=== PATIENT | male | born 1940 | race Caucasian/White ===

== ENCOUNTER 2016-12-22 21:41 | Emergency (ER) | payer OTHER, MEDICARE ==
--- NOTE | 2016-12-23 00:13 | ER Document Report ---
ED General - General Chief Complaint: Foot Pain Stated Complaint: FOOT PAIN Notes: Patient is a 76-year-old male who presents with concerns of pain on the top of his left foot. States that he accidentally dropped a 40 pound metal trailer and on the top of the foot so several hours prior to onset of pain. States he initially did not have any pain but after taking his boots off he began to have progressively worsening pain. Described as a severe, constant, throbbing pain. States he could not walk on the foot the pain was so bad. Nothing improves the pain and he did try Tylenol and ice at home. At the time my evaluation, patient states that the pain is now mostly resolved and states "I feel stupid for coming here". He has been able to walk on it at this time. He denies any history of similar injury in the past. He has not seen his primary care doctor regarding today's concerns. TRAVEL OUTSIDE OF THE [place] IN LAST 30 DAYS: No - Related Data Allergies/Adverse Reactions: No Known Allergies Allergy (Verified 12/22/16 22:29) Past Medical History - General Information source: Patient - Social History Smoking Status: Former Smoker Chew tobacco use (# tins/day): No Frequency of alcohol use: None Drug Abuse: None Lives with: Spouse/Significant other Family History: Reviewed & Not Pertinent - Past Medical History Cardiac Medical History: Reports: Hx Hypertension Neurological Medical History: Denies: Hx Cerebrovascular Accident, Hx Seizures Renal/ Medical History: Reports: Hx End Stage Renal Disease - Stage III kidney disease. Denies: Hx Peritoneal Dialysis GI Medical History: Denies: Hx Hepatitis, Hx Hiatal Hernia, Hx Ulcer Musculoskeltal Medical History: Reports Hx Arthritis, Reports Hx Musculoskeletal Deformity, Reports Hx Musculoskeletal Trauma Traumatic Medical History: Reports: Hx Fractures - Artificial new used to broken ribs to broken toes broken jaw applied Infectious Medical History: Denies: Hx Hepatitis Past Surgical History: Reports: Hx Orthopedic Surgery - Two atrificial legs. Denies: Hx Open Heart Surgery, Hx Pacemaker - Immunizations Hx Diphtheria, Pertussis, Tetanus Vaccination: Yes Hx Pneumococcal Vaccination: 10/22/12 Review of Systems - Review of Systems Notes: Constitutional: Negative for fever. HENT: Negative for sore throat. Eyes: Negative for visual changes. Cardiovascular: Negative for chest pain. Respiratory: Negative for shortness of breath. Gastrointestinal: Negative for abdominal pain, vomiting or diarrhea. Genitourinary: Negative for dysuria. Musculoskeletal: Positive for left foot pain Skin: Negative for rash. Neurological: Negative for headaches, weakness or numbness. 10 point ROS negative except as marked above and in HPI. Physical Exam - Vital signs Vitals: Temp Pulse Resp BP Pulse Ox 98.2 F 66 16 143/51 H 96 12/22/16 22:33 12/22/16 22:33 12/22/16 22:33 12/22/16 22:33 12/22/16 22:33 Interpretation: Hypertensive Notes: PHYSICAL EXAMINATION: GENERAL: Well-appearing, well-nourished and in no acute distress. HEAD: Atraumatic, normocephalic. EYES: sclera anicteric, conjunctiva are normal. ENT: Moist mucous membranes. NECK: Normal range of motion LUNGS: Normal work of breathing HEART: 2+ radial pulses bilaterally EXTREMITIES: no pitting or edema. No cyanosis. NEUROLOGICAL: No focal neurological deficits. Moves all extremities spontaneously and on command. PSYCH: Normal mood, normal affect. SKIN: Warm, Dry, normal turgor, there is a small ecchymosis over the dorsal surface of the central left foot without any palpable deformity. Course - Re-evaluation Re-evalutation: 12/23/16 00:12 No evidence of a septic joint, gout flare, dislocation, or fracture on exam and imaging. Vision provided clinical history of direct trauma to the foot and there is associated bruising and mild swelling on exam. Vitals wnl. At this time, I do not see an indication for labs or further imaging. At this time will discharge with return precautions and follow-up recommendations. Verbal discharge instructions given a the bedside and opportunity for questions given. Medication warnings reviewed. Patient is in agreement with this plan and has verbalized understanding of return precautions and the need for primary care follow-up in the next 24-72 hours. - Vital Signs Vital signs: Temp Pulse Resp BP Pulse Ox 97.5 F 60 16 124/66 98 12/23/16 00:27 12/23/16 00:27 12/23/16 00:27 12/23/16 00:27 12/23/16 00:27 - Diagnostic Test Radiology reviewed: Image reviewed, Reports reviewed Radiology results interpreted by me: 12/23/16 00:12 Left foot x-ray: No acute fracture-dislocation Discharge - Discharge Clinical Impression: Left foot pain Condition: Good Disposition: HOME, SELF-CARE Additional Instructions: Your x-ray does not show any acute fracture today. You likely have a soft tissue injury from the heavy object falling on foot. Take Tylenol 1000 mg every 6 hours as needed for pain. Continue to apply ice to the area is much your able. Please follow-up with your primary care physician if you do not have improving your symptoms in the next 1-2 weeks. Please return immediately if you develop weakness, numbness, spreading redness from the area, or any other symptoms that are concerning to you. Referrals: YASMANY SAN MD [Primary Care Provider] - Follow up as needed
[2016-12-23 00:28] VITALS: BP 124/66
== END 2016-12-23 00:29 | disposition home or self-care (01) ==
LOC: ER 21:41
DX: M79.672 Pain in left foot (principal); Z87.891 Personal history of nicotine dependence
CPT/HCPCS: 99283

== ENCOUNTER → 2017-01-05 | Outpatient (CLI) | payer MEDICARE, OTHER | LOC: SP 12:40 | PROVIDERS: ATTEND Physician Assistant | DX: M79.662 Pain in left lower leg (principal) | CPT/HCPCS: 93971 ==

== ENCOUNTER 2017-02-25 13:25 | Emergency (ER) | payer OTHER, MEDICARE ==
[2017-02-25] MEDS ORDERED: NORMAL SALINE 1000 ML 1,000 ML IV ONE (14:23)
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
[2017-02-25 16:02] LABS: ABSOLUTE EOSINOPHILS # (AUTO) 0.3 10^3/uL (0.0-0.6); ABSOLUTE LYMPHOCYTES (AUTO) 0.9 10^3/uL (0.5-4.7); ABSOLUTE MONOCYTES (AUTO) 0.7 10^3/uL (0.1-1.4); ABSOLUTE NEUT (AUTO) 7.2 10^3/uL (1.7-8.2); BASOPHILS % (AUTO) 0.5 % (0-2); EOSINOPHILS % (AUTO) 2.9 % (0-6); HEMATOCRIT 38.5 % (37.9-51.0); HEMOGLOBIN 13.4 g/dL (13.5-17.0); HGB HCT DIFFERENCE 1.7; LYMPHOCYTES % (AUTO) 10.2 % (13-45); MEAN CORPUSCULAR HEMOGLOBIN 31.8 pg (27.0-33.4); MEAN CORPUSCULAR HGB CONC 34.8 g/dL (32.0-36.0); MEAN CORPUSCULAR VOLUME 91 fl (80-97); MONOCYTES % (AUTO) 7.7 % (3-13); RED BLOOD COUNT 4.21 10^6/uL (4.35-5.55); RED CELL DISTRIBUTION WIDTH 13.9 % (11.5-14.0); SEGMENTED NEUTROPHILS % (AUTO) 78.7 % (42-78); WHITE BLOOD COUNT 9.2 10^3/uL (4.0-10.5)
[2017-02-25 16:19] LABS: ALANINE AMINOTRANSFERASE 41 U/L (21-72); ALBUMIN 4.2 g/dL (3.5-5.0); ALKALINE PHOSPHATASE 85 U/L (38-126); ANION GAP 12 (5-19); ASPARTATE AMINO TRANSFERASE 35 U/L (17-59); BILIRUBIN,DIRECT 0.2 mg/dL (0.0-0.4); BILIRUBIN,TOTAL 0.6 mg/dL (0.2-1.3); BLOOD UREA NITROGEN 30 mg/dL (7-20); CALCIUM 9.8 mg/dL (8.4-10.2); CARBON DIOXIDE 22 mmol/L (22-30); CHLORIDE 107 mmol/L (98-107); CREATININE RESULT 1.85 mg/dL (0.52-1.25); GLUCOSE 99 mg/dL (75-110); POTASSIUM 4.2 mmol/L (3.6-5.0); SODIUM 141.4 mmol/L (137-145); TOTAL PROTEIN 6.7 g/dL (6.3-8.2)
[2017-02-25 19:53] VITALS: BP 151/64
== END 2017-02-25 19:54 | disposition home or self-care (01) ==
LOC: ER 13:25
DX: S16.1XXA Strain of muscle, fascia and tendon at neck level, initial encounter (principal); V43.52XA Car driver injured in collision with other type car in traffic accident, initial encounter; Y92.411 Interstate highway as the place of occurrence of the external cause; M54.2 Cervicalgia; M54.9 Dorsalgia, unspecified; M25.519 Pain in unspecified shoulder; I12.9 Hypertensive chronic kidney disease with stage 1 through stage 4 chronic kidney disease, or unspecified chronic kidney disease; N18.3 Chronic kidney disease, stage 3 (moderate); I25.10 Atherosclerotic heart disease of native coronary artery without angina pectoris; Z79.02 Long term (current) use of antithrombotics/antiplatelets; Z87.891 Personal history of nicotine dependence
CPT/HCPCS: 99284; 36415; 85025; 85610; 80053; 73030; 70450; 71260; 72125; 74177; J7030

== ENCOUNTER 2017-12-31 04:34 | Observation (INO) | payer OTHER, MEDICARE ==
[2017-12-31] MEDS ORDERED: ASPIRIN 81 MG TABLET, CHEWABLE PO ONE (04:58)
[2017-12-31] MEDS ORDERED: ONDANSETRON HCL INJ/PF 4 MG/2 ML SDV IV ONE (04:59)
[2017-12-31] MEDS ORDERED: FENTANYL CITRATE INJ/PF 100 MCG/2 ML AMPUL IV ONE (04:59)
--- NOTE | 2017-12-31 05:00 | ER Document Report ---
ED Cardiac - General Chief Complaint: Chest Pain Stated Complaint: FLANK PAIN Time Seen by Provider: 12/31/17 04:52 Notes: Patient is a 77-year-old male who comes emergency department for chief complaint of left-sided chest pain, he states it is sharp, shoots along the left side of his ribs and goes towards his back. Pain woke him up at about 3:00 , has been constant and severe since. He denies nausea or vomiting, fever chills, difficulty breathing. He denies injury. He denies history of the same. Former smoker, has had carotid endarterectomy, has hypertension, CKD. He states he is on Plavix, states he took 2 prior to arrival (75 mg daily dose), states he also took a pain pill, states these did not help. He denies ever having a stress test, cardiac cath, or heart attack. Patient denies any alcohol or drug abuse. TRAVEL OUTSIDE OF THE [place] IN LAST 30 DAYS: No - Related Data Allergies/Adverse Reactions: No Known Allergies Allergy (Verified 12/22/16 22:29) Past Medical History - General Information source: Patient - Social History Smoking Status: Never Smoker Frequency of alcohol use: None Drug Abuse: None Lives with: Family Family History: None - Past Medical History Cardiac Medical History: Reports: Hx Hypertension Neurological Medical History: Denies: Hx Cerebrovascular Accident, Hx Seizures Renal/ Medical History: Reports: Hx End Stage Renal Disease - Stage III kidney disease. Denies: Hx Peritoneal Dialysis GI Medical History: Denies: Hx Hepatitis, Hx Hiatal Hernia, Hx Ulcer Musculoskeltal Medical History: Reports Hx Arthritis, Reports Hx Musculoskeletal Deformity, Reports Hx Musculoskeletal Trauma Traumatic Medical History: Reports: Hx Fractures Infectious Medical History: Denies: Hx Hepatitis Past Surgical History: Reports: Hx Orthopedic Surgery - knee replacements. Denies: Hx Open Heart Surgery, Hx Pacemaker - Immunizations Hx Diphtheria, Pertussis, Tetanus Vaccination: Yes Hx Pneumococcal Vaccination: 10/22/12 Review of Systems - Review of Systems Constitutional: No symptoms reported EENT: No symptoms reported Cardiovascular: See HPI Respiratory: No symptoms reported Gastrointestinal: No symptoms reported Genitourinary: No symptoms reported Male Genitourinary: No symptoms reported Musculoskeletal: No symptoms reported Skin: No symptoms reported Hematologic/Lymphatic: No symptoms reported Neurological/Psychological: No symptoms reported Physical Exam - Vital signs Vitals: Resp BP Pulse Ox 20 140/68 H 99 03/12/18 04:55 12/31/17 04:55 12/31/17 04:55 - General General appearance: Anxious In distress: Moderate - Patient appears to be in pain, grimaces - HEENT Head: Normocephalic, Atraumatic Eyes: Normal Conjunctiva: Normal Extraocular movements intact: Yes Eyelashes: Normal Pupils: PERRL Mouth/Lips: Normal Mucous membranes: Normal Pharynx: Normal Neck: Normal - Respiratory Respiratory status: No respiratory distress Chest status: Nontender. No: Tender Breath sounds: Normal. No: Decreased air movement, Nonproductive cough, Wheezing - Cardiovascular Rhythm: Regular. No: Tachycardia Heart sounds: Normal auscultation, S1 appreciated, S2 appreciated - Abdominal Inspection: Normal Tenderness: Nontender. No: Tender - Back Back: Normal, Nontender. No: Tender - Extremities General upper extremity: Normal inspection, Nontender, Normal strength, Normal temperature General lower extremity: Normal inspection, Nontender, Normal strength, Normal temperature. No: Edema - Neurological Neuro grossly intact: Yes Cognition: Normal Orientation: AAOx4 [place] Coma Scale Eye Opening: Spontaneous Ej Coma Scale Verbal: Oriented [place] Coma Scale Motor: Obeys Commands Ej Coma Scale Total: 15 Speech: Normal Motor strength normal: LUE, RUE, LLE, RLE Sensory: Normal - Psychological Associated symptoms: Anxious - Skin Skin Moisture: Dry Skin Color: Normal Course - Re-evaluation Re-evalutation: Patient appears to be very uncomfortable, grimacing, shifting. No pain on palpation of the chest. Constant pain. EKG shows sinus rhythm at a rate of 54, right bundle branch block, inverted T waves and slight ST segment elevation in lead III but not in consecutive leads. No T-wave inversions or ST segment changes in consecutive leads. No comparison EKG. 12/31/17 Dr. Ca did evaluate patient at bedside because of the patient's discomfort level. Chest x-ray unremarkable. Patient with no chest wall tenderness. CBC, chemistry unremarkable except for chronic kidney disease. CTA was performed to rule out dissection because of patient's discomfort. This does not show dissection, pulmonary emboli, pneumonia, or any concerning acute process. Questionable area suggesting pancreatitis versus nonspecific enteritis. However on examination patient has no abdominal pain, either initially or now, lipase checked and is negative. After fentanyl patient's pain resolved. Initial troponin is negative. Patient' s heart score is 4. Because of uncertain cause of chest pain, will discuss for admission. Discussed this with patient, patient states agreement with this plan. 12/31/17 07:[address] Leigh, he requests I speak to cardiology on-call. I spoke with Dr. Bradshaw and with Dr. Powell, reviewed the case with Dr. Powell, he does recommend telemetry observation at this time. Spoke with Dr. Leigh again, he refers to Marcelle NESS. Spoke with Marcelle NESS, patient will be admitted to telemetry observation. Patient states agreement with this plan, he states he still feels excellent after medications. - Vital Signs Vital signs: Temp Pulse Resp BP Pulse Ox 97.8 F 54 L 16 139/87 H 97 12/31/17 05:05 12/31/17 05:05 12/31/17 07:01 12/31/17 07:01 12/31/17 07:01 - Laboratory Result Diagrams: 12/31/17 04:54 12/31/17 04:54 Laboratory results interpreted by me: 12/31/17 04:54 BUN 28 H Creatinine 1.87 H Est GFR ( Amer) 43 L Est GFR (Non-Af Amer) 35 L Glucose 117 H Discharge - Discharge Clinical Impression: Chest pain Qualifiers: Chest pain type: unspecified Qualified Code(s): R07.9 - Chest pain, unspecified Condition: Stable Disposition: ADMITTED OBSERVATION Admitting Provider: Hospitalist Unit Admitted: Telemetry Referrals: YASMANY SAN MD [Primary Care Provider] - Follow up as needed
[2017-12-31] MEDS ORDERED: CLOPIDOGREL BISULFATE 75 MG TABLET PO ONE (05:05)
[2017-12-31 05:07] LABS: ABSOLUTE EOSINOPHILS # (AUTO) 0.3 10^3/uL (0.0-0.6); ABSOLUTE LYMPHOCYTES (AUTO) 1.4 10^3/uL (0.5-4.7); ABSOLUTE MONOCYTES (AUTO) 0.6 10^3/uL (0.1-1.4); ABSOLUTE NEUT (AUTO) 4.3 10^3/uL (1.7-8.2); BASOPHILS % (AUTO) 0.6 % (0-2); EOSINOPHILS % (AUTO) 4.9 % (0-6); HEMATOCRIT 41.4 % (37.9-51.0); HEMOGLOBIN 14.3 g/dL (13.5-17.0); LYMPHOCYTES % (AUTO) 21.2 % (13-45); MEAN CORPUSCULAR HEMOGLOBIN 31.8 pg (27.0-33.4); MEAN CORPUSCULAR HGB CONC 34.6 g/dL (32.0-36.0); MEAN CORPUSCULAR VOLUME 92 fl (80-97); MONOCYTES % (AUTO) 9.4 % (3-13); PLATELET COUNT 196 10^3/uL (150-450); RED CELL DISTRIBUTION WIDTH 13.9 % (11.5-14.0); SEGMENTED NEUTROPHILS % (AUTO) 63.9 % (42-78); TOTAL CELLS COUNTED % (AUTO) 100 %; WHITE BLOOD COUNT 6.7 10^3/uL (4.0-10.5)
[2017-12-31 05:24] LABS: ALANINE AMINOTRANSFERASE 33 U/L (21-72); ALBUMIN 4.6 g/dL (3.5-5.0); ALKALINE PHOSPHATASE 76 U/L (38-126); ANION GAP 14 (5-19); ASPARTATE AMINO TRANSFERASE 31 U/L (17-59); BILIRUBIN,DIRECT 0.1 mg/dL (0.0-0.4); BILIRUBIN,TOTAL 0.5 mg/dL (0.2-1.3); BLOOD UREA NITROGEN 28 mg/dL (7-20); CALCIUM 9.8 mg/dL (8.4-10.2); CARBON DIOXIDE 25 mmol/L (22-30); CHLORIDE 106 mmol/L (98-107); CREATINE KINASE 138 U/L (55-170); GLUCOSE 117 mg/dL (75-110); POTASSIUM 4.4 mmol/L (3.6-5.0); SODIUM 144.6 mmol/L (137-145); TOTAL PROTEIN 6.9 g/dL (6.3-8.2)
--- NOTE | 2017-12-31 05:30 | RADIOLOGY REPORT (SQ) ---
EXAM DESCRIPTION: CHEST SINGLE VIEW CLINICAL HISTORY: chest pain COMPARISON: None. FINDINGS: Single frontal view of the chest. After scar calcification aortic arch. Heart is not enlarged. Leads overlie the chest. Chronic appearing interstitial opacities. No pneumothorax, pleural effusion, or lobar consolidation. No acute osseous abnormality. Upper abdominal soft tissues are unremarkable. IMPRESSION: 1. No acute pneumonic process identified.
[2017-12-31 05:36] LABS: CREATINE KINASE MB 1.92 ng/mL (<4.55)
[2017-12-31 05:51] LABS: TROPONIN I < 0.012 ng/mL
--- NOTE | 2017-12-31 06:12 | RADIOLOGY REPORT (SQ) ---
EXAM DESCRIPTION: CTA of the chest, abdomen, and pelvis obtained with contrast. CLINICAL HISTORY: chest pain radiating to back COMPARISON: 02/25/2017 TECHNIQUE: CTA of the chest, abdomen, and pelvis obtained following the uncomplicated intravenous administration of 100 mL Isovue-370 DLP: 2471.61 mGycm FINDINGS: CTA: The ascending thoracic aorta has normal caliber. There is mild atherosclerotic plaque throughout the visualized course of the thoracic and abdominal aorta. The aortic arch, descending thoracic aorta, and abdominal aorta have normal caliber without evidence of aneurysm, dissection, or penetrating aortic ulcer. The origin of the celiac, superior mesenteric, and inferior mesenteric arteries are widely patent. No evidence of filling defect or stenosis of these vessels. Mild atherosclerotic plaque at the origin of the left renal artery is not flow-limiting. Right renal artery is patent. There is in-line flow from the abdominal aorta into the common iliac, external iliac, common femoral, proximal superficial femoral arteries. The proximal profunda femoral artery and internal iliac arteries are patent. No evidence of visceral artery pseudoaneurysm. CHEST: Visualized thyroid gland is unremarkable. No cardiomegaly, pericardial effusion, or coronary artery atherosclerosis. Visualized esophagus is unremarkable. No mediastinal lymphadenopathy. No filling defects identified in the pulmonary arteries. Lung windows demonstrate mild bilateral dependent atelectasis. Paraseptal emphysematous changes. No lobar consolidation, pneumothorax or pleural effusion. Abdomen: The liver has normal size and density. No intrahepatic mass or biliary dilatation. No calcified gallstones. The spleen and adrenal glands are unremarkable. No definite abnormalities of the pancreas however there is mild haziness of the central mesentery. Kidneys excrete contrast without solid mass or hydronephrosis. Bilateral Bosniak class I renal cysts. No hydronephrosis. IVC is unremarkable. No free intraperitoneal air. The stomach and duodenum have normal course. Pelvis: Enlarged prostate. Urinary bladder is unremarkable. No free pelvic fluid or lymphadenopathy. Scattered diverticula of the colon without pericolic fat stranding. No dilated loops of large or small bowel. No evidence of appendicitis. It is not definitely identified. Bilateral vasectomy clips noted. Degenerative change of the spine. IMPRESSION: 1. No evidence of aortic dissection or aneurysm. 2. Mild haziness of the mesentery. This is a nonspecific finding that could be seen with pancreatitis or nonspecific enteritis. Correlation with serum lipase recommended. Follow-up CT of the abdomen in 6 months recommended to document stability or resolution. 3. Enlarged prostate. 4. Diverticulosis without evidence of diverticulitis. This exam was performed according to our departmental dose-optimization program, which includes automated exposure control, adjustment of the mA and/or kV according to patient size and/or use of iterative reconstruction technique.
--- NOTE | 2017-12-31 07:01 | EKG REPORT ---
SEVERITY:- ABNORMAL ECG - SINUS RHYTHM RIGHT BUNDLE BRANCH BLOCK : Confirmed by: Anthony Bradshaw MD 31-Dec-2017 07:00:49
[2017-12-31] MEDS ORDERED: NITROGLYCERIN 0.4 MG/TAB 25 TAB/BOTTLE SL PRN (08:44)
[2017-12-31] MEDS: ASPIRIN 81 MG TABLET, ENT COATED PO SCH (10:02)
--- NOTE | 2017-12-31 20:49 | PDOC CONSULTATION ---
Consultation Consult Date: 12/31/17 Attending physician:: ELIAZAR FERRO Consult reason:: Chest pain History of Present Illness Admission Date/PCP: 12/31/17 08:36 YASMANY SAN MD Patient complains of: Chest pain History of Present Illness: DERRELL BATRES is a 77 year old male who comes emergency department for chief complaint of left-sided chest pain, he states it is sharp, shoots along the left side of his ribs and goes towards his back. Pain woke him up at about 3:00 , has been constant and severe since. He denies nausea or vomiting, fever chills, difficulty breathing. He denies injury. He denies history of the same. Former smoker, has had carotid endarterectomy, has hypertension, CKD. He states he is on Plavix, states he took 2 prior to arrival (75 mg daily dose), states he also took a pain pill, states these did not help. He denies ever having a stress test, cardiac cath, or heart attack. Patient denies any alcohol or drug abuse. This history was reviewed and confirmed. Patient denied any recurrence of chest pain while in the hospital. So far cardiac enzymes have been negative. EKG is relatively nonacute. CT is negative for aortic dissection and pulmonary embolism. Patient scheduled for a stress test tomorrow. 2D echo will also be ordered. Past Medical History Cardiac Medical History: Reports: Hypertension Neurological Medical History: Denies: Seizures Renal/ Medical History: Reports: End Stage Renal Disease - Stage III kidney disease GI Medical History: Denies: Hepatitis, Hiatal Hernia Musculoskeltal Medical History: Reports: Arthritis Hematology: Denies: Anemia, Sickle Cell Disease Past Surgical History Past Surgical History: Reports: Orthopedic Surgery - knee replacements, Vascular Surgery - carotid surgery Denies: Pacemaker Social History Information Source: Patient Lives with: Family Smoking Status: Former Smoker Drugs: None - Advance Directive Resuscitation Status: Full Code Family History Family History: None Parental Family History Reviewed: Yes Children Family History Reviewed: Yes Sibling(s) Family History Reviewed.: Yes Medication/Allergy Home Medications: Amlodipine Besylate [Norvasc 10 mg Tablet] 10 mg PO DAILY 12/31/17 Cyanocobalamin (Vitamin B-12) [Vitamin B-12 100 mcg Tablet] 100 mcg PO DAILY 10/08 Febuxostat [Uloric 40 mg Tablet] 40 mg PO DAILY 12/31/17 Aspirin [Ecotrin 81 mg EC Tablet] 81 mg PO DAILY #90 tabec 01/01/18 Atorvastatin Calcium [Lipitor 10 mg Tablet] 10 mg PO QHS #30 tablet 01/01/18 Clopidogrel Bisulfate [Plavix 75 mg Tablet] 75 mg PO DAILY #21 tablet 01/01/18 Allergies/Adverse Reactions: No Known Allergies Allergy (Verified 12/22/16 22:29) Review of Systems Review of Systems: Please see history of present illness and past medical history as wall. Constitutional: No fever or chills reported. Head : No recent chronic headaches, recent head injury. Eyes: No recent eye pain, diplopia, redness, discharge, acute visual changes. Ears: No recent chronic ear pain, acute hearing loss, ear discharge. Oral cavity: No recent ulcerations, bleeding, oral cavity discomfort. Neck: No recent acute neck pain reported. Hematologic: No recent easy bruising or bleeding or hematologic malignancy reported. Lymphatic: No recent lymphatic malignancy, chronic lymphadenopathy reported yet Cardiovascular system review: See history of present illness. Respiratory system review: No recent chronic cough, hemoptysis, blood clots in the lungs reported. Mild Shortness of breath on exertion Gastrointestinal system review: Negative for any recent acute or chronic abdominal pain, hematemesis, melena, recent change in bowel habits. Genitourinary system review: No recent acute or chronic hematuria, flank pain, UTI etc. reported. Skin system review: Negative for any recent abnormal bruising, no rash, no pruritus reported. Neurologic: No prior history of strokes, mini strokes, seizure disorder. Psychologic: No history of major psychosis or major depression reported. Musculoskeletal: Minor aches and pains reported. No acute joint swelling reported. Endocrine: No recent polyuria, polydipsia, recent heat or cold intolerance. Physical Exam Vital Signs: Temp Pulse Resp BP Pulse Ox 97.9 F 58 L 20 113/72 99 12/31/17 16:20 12/31/17 16:20 12/31/17 16:20 12/31/17 16:20 12/31/17 16:20 Exam: GENERAL: well-nourished and in no acute distress. Alert and oriented x3 HEAD: Atraumatic, normocephalic. EYES: Pupils equal round and reactive to light, extraocular movements intact, sclera anicteric, conjunctiva are normal. ENT: TMs normal, nares patent, oropharynx clear without exudates. Moist mucous membranes. No oral ulcerations or bleeding gums noted NECK: supple without lymphadenopathy. Trachea is central. No cervical or axillary lymphadenopathy noted. Carotids are 2+, JVD WNL LUNGS: Respiration seems nonlabored, no significant accessory muscle action noted. Breath sounds clear to auscultation bilaterally and equal noted. No wheezes rales or rhonchi noted. No significant dullness noted on percussion. CHEST: Palpation of the chest wall shows no significant chest wall tenderness. No other significant abnormalities noted. 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 ABDOMEN: Soft, no significant tenderness appreciated, normoactive bowel sounds. No guarding, no rebound. No rigidity noted . No masses appreciated. EXTREMITIES: Pedal pulses are 1-2+, no calf tenderness noted. No clubbing or cyanosis.trace to 1+ pedal edema noted NEUROLOGICAL: Focused neurological exam showed no significant neurologic deficit. Normal speech, no focal weakness appreciated. PSYCH: Normal mood, normal affect. Judgment and insight within normal limits. SKIN: No significant ecchymosis, skin is noted to be warm. MUSCULOSKELETAL EXAM: No significant acute joint swelling noted. Results Laboratory Results: 12/31/17 14:49 Troponin I < 0.012 EKG Comments: Sinus rhythm without any acute ST-T wave changes Impressions: Chest X-Ray 12/31/17 04:58 IMPRESSION: 1. No acute pneumonic process identified. Abdomen/Pelvis CTA 12/31/17 05:01 IMPRESSION: 1. No evidence of aortic dissection or aneurysm. 2. Mild haziness of the mesentery. This is a nonspecific finding that could be seen with pancreatitis or nonspecific enteritis. Correlation with serum lipase recommended. Follow-up CT of the abdomen in 6 months recommended to document stability or resolution. 3. Enlarged prostate. 4. Diverticulosis without evidence of diverticulitis. This exam was performed according to our departmental dose-optimization program, which includes automated exposure control, adjustment of the mA and/or kV according to patient size and/or use of iterative reconstruction technique. Chest/Abdomen CTA 12/31/17 05:01 IMPRESSION: 1. No evidence of aortic dissection or aneurysm. 2. Mild haziness of the mesentery. This is a nonspecific finding that could be seen with pancreatitis or nonspecific enteritis. Correlation with serum lipase recommended. Follow-up CT of the abdomen in 6 months recommended to document stability or resolution. 3. Enlarged prostate. 4. Diverticulosis without evidence of diverticulitis. This exam was performed according to our departmental dose-optimization program, which includes automated exposure control, adjustment of the mA and/or kV according to patient size and/or use of iterative reconstruction technique. Assessment & Plan - Diagnosis (1) Chest pain Qualifiers: Chest pain type: unspecified Qualified Code(s): R07.9 - Chest pain, unspecified Is this a current diagnosis for this admission?: Yes (2) Dyslipidemia Is this a current diagnosis for this admission?: Yes (3) CKD (chronic kidney disease) Qualifiers: Chronic kidney disease stage: stage 3 (moderate) Qualified Code(s): N18.3 - Chronic kidney disease, stage 3 (moderate) Is this a current diagnosis for this admission?: Yes (4) Hypertension Qualifiers: Hypertension type: essential hypertension Qualified Code(s): I10 - Essential (primary) hypertension Is this a current diagnosis for this admission?: Yes - Notes Notes: Chest pain: Patient has some typical and atypical features of chest pain. Cardiac enzymes so far has been negative. Electrocardiogram did not show any definitive ST segment changes. Multiple differential diagnoses exist in this patient. In descending order of probability this includes underlying coronary artery disease, gastroesophageal reflux, musculoskeletal pain, referred pain from elsewhere, anxiety panic disorder etc.Patient has significant cardiac risk factors, which indicates that there is a intermediate probability of chest discomfort coming from underlying CAD. Feel that it would need to be evaluated further. Discussed evaluation to assess this. In this regard risk benefits of nuclear stress test and other alternative processes were discussed in detail. The patient prefers to undergo nuclear stress test. The small risk of radiation , myocardial infarction, , cardiac arrhythmias, respiratory distress etc. were discussed. Patient understood the risks and gave informed consent. Nuclear stress test was therefore scheduled. For risk evaluation, patient is also being scheduled for a 2-D echocardiogram. Patient questions were answered. Blood pressure goal in this patient is 140/90 or less. This was discussed with the patient. Currently blood pressure under reasonable control. Better medication for this patient are TORSTEN inhibitor/ARB/beta madhu etc. discussed side effects of uncontrolled hypertension and also severe hypotension. Hyperlipidemia: LDL goal is less than 70. Recommend statin therapy at least intermediate or high dose, of high potency status. Periodic lipid panel and liver panel is indicated. Patient to report any significant muscle discomfort or other side effects. Patient seems to have chronic kidney disease stage 3. Creatinine been stable. Avoid any nephrotoxic agents, IV contrast agent dye etc. consider nephrology evaluation. Presence of chronic kidney disease is a prognostic factor. - Time Time Spent: 30 to 50 Minutes - CODE STATUS was discussed, patient remains full code. Surrogate decision-maker unchanged. Multiple medical problems were addressed. More than 50% of the time spent coordinating care, discussing management plans with involved caregivers. Management plans discussed with involved personnels. Medical decision making was of moderate to high complexity , patient's has multiple comorbidities. Medications reviewed and adjusted accordingly: Yes
[2017-12-31] MEDS ORDERED: HYDRALAZINE HCL INJ/PF 20 MG/1 ML SDV IV PRN (21:47)
[2017-12-31] MEDS ORDERED: ATORVASTATIN CALCIUM 10 MG TABLET PO SCH (22:00)
--- NOTE | 2017-12-31 22:04 | PDOC H&P ---
History of Present Illness Admission Date/PCP: 12/31/17 08:36 LUKE DICKSON MD Patient complains of: Chest pain History of Present Illness: DERRELL BATRES is a 77 year old male who presented to the emergency department for chest pain. He states that he woke up at 0300 with sharp L sided chest pain radiating to his shoulder. He took 1 "pain pill" and 150 mg Plavix to alleviate the pain, but it offered no relief. The pain lasted approximately 3 hours when the patient drove himself to the ED. His EKG shows T wave inversion in the septal/anterior leads, RBBB, and ST elevation in lead III. The patient was given 150mg Plavix (total dose 300 mg Plavix) and 75mg fentanyl IV, and his chest pain resolved. CXR benign. Troponin < 0.012. Cardiology has been consulted. Given the patient's concerning symptoms , his significant PMH, and abnormal EKG, he is being admitted for chest pain observation. PMH includes HTN, CKD, angina, carotid stenosis (L carotid 40% stenosed), R carotid endarterectomy PMD - Dr. Luke Dickson Automation Driver - Dr. Guo (Formerly [facility], [facility]) Renal - Dr. Kaufman ([place]) Past Medical History Cardiac Medical History: Reports: Hypertension Cardiac History Note: CAROTID STENOSIS Pulmonary Medical History: Reports: None Pulmonary History Note: FORMER SMOKER - quit 1971 EENT Medical History: Reports: None Neurological Medical History: Reports: None Endocrine Medical History: Reports: None Renal/ Medical History: Reports: End Stage Renal Disease - Stage III kidney disease Malignancy Medical History: Reports: None GI Medical History: Reports: None Musculoskeltal Medical History: Reports: Arthritis, Gout Psychiatric Medical History: Reports: None Traumatic Medical History: Reports: None Hematology: Reports: None Infectious Medical History: Reports: None Past Surgical History Past Surgical History: Reports: Orthopedic Surgery - knee replacements, Vascular Surgery - carotid surgery Denies: Pacemaker Social History Information Source: Patient Lives with: Family Smoking Status: Former Smoker Frequency of Alcohol Use: None Drugs: None - Advance Directive Resuscitation Status: Full Code Family History Family History: None Parental Family History Reviewed: Yes - Father - [place]; Mother - old age Children Family History Reviewed: No Sibling(s) Family History Reviewed.: No Medication/Allergy Home Medications: Amlodipine Besylate [Norvasc 10 mg Tablet] 10 mg PO DAILY 12/31/17 Cyanocobalamin (Vitamin B-12) [Vitamin B-12 100 mcg Tablet] 100 mcg PO DAILY 10/08 Febuxostat [Uloric 40 mg Tablet] 40 mg PO DAILY 12/31/17 Allergies/Adverse Reactions: No Known Allergies Allergy (Verified 12/22/16 22:29) Review of Systems Constitutional: PRESENT: as per HPI Cardiovascular: PRESENT: chest pain - sharp L sided pain radiating to shoulder Respiratory: ABSENT: as per HPI, cough, dyspnea, hemoptysis, sputum, other Gastrointestinal: ABSENT: nausea Musculoskeletal: ABSENT: back pain Physical Exam Vital Signs: Temp Pulse Resp BP Pulse Ox 98.3 F 57 L 15 131/63 H 99 12/31/17 20:00 12/31/17 20:00 12/31/17 20:00 12/31/17 20:00 12/31/17 20:00 General appearance: PRESENT: no acute distress Head exam: PRESENT: atraumatic Eye exam: PRESENT: conjunctiva pink Mouth exam: PRESENT: moist Neck exam: PRESENT: full ROM. ABSENT: carotid bruit Respiratory exam: PRESENT: clear to auscultation magdalena, symmetrical, unlabored Cardiovascular exam: PRESENT: +S1, +S2 Pulses: PRESENT: normal radial pulses, normal dorsalis pedis pul Vascular exam: PRESENT: normal capillary refill GI/Abdominal exam: PRESENT: normal bowel sounds Rectal exam: PRESENT: deferred Extremities exam: PRESENT: full ROM. ABSENT: pedal edema Musculoskeletal exam: PRESENT: ambulatory, full ROM Neurological exam: PRESENT: alert, awake, oriented to person, oriented to place , oriented to time, oriented to situation Results Laboratory Results: 12/31/17 14:49 Troponin I < 0.012 Impressions: Chest X-Ray 12/31/17 04:58 IMPRESSION: 1. No acute pneumonic process identified. Abdomen/Pelvis CTA 12/31/17 05:01 IMPRESSION: 1. No evidence of aortic dissection or aneurysm. 2. Mild haziness of the mesentery. This is a nonspecific finding that could be seen with pancreatitis or nonspecific enteritis. Correlation with serum lipase recommended. Follow-up CT of the abdomen in 6 months recommended to document stability or resolution. 3. Enlarged prostate. 4. Diverticulosis without evidence of diverticulitis. This exam was performed according to our departmental dose-optimization program, which includes automated exposure control, adjustment of the mA and/or kV according to patient size and/or use of iterative reconstruction technique. Chest/Abdomen CTA 12/31/17 05:01 IMPRESSION: 1. No evidence of aortic dissection or aneurysm. 2. Mild haziness of the mesentery. This is a nonspecific finding that could be seen with pancreatitis or nonspecific enteritis. Correlation with serum lipase recommended. Follow-up CT of the abdomen in 6 months recommended to document stability or resolution. 3. Enlarged prostate. 4. Diverticulosis without evidence of diverticulitis. This exam was performed according to our departmental dose-optimization program, which includes automated exposure control, adjustment of the mA and/or kV according to patient size and/or use of iterative reconstruction technique. Status: Imported from PACS Assessment & Plan - Diagnosis (1) Chest pain Qualifiers: Chest pain type: unspecified Qualified Code(s): R07.9 - Chest pain, unspecified Is this a current diagnosis for this admission?: Yes Plan: Presents with L sided sharp chest pain radiating to the L arm. Treated with 300mg Plavix and 75mcg fentanyl. Patient is now chest pain free. Of note, the patient stated that he stopped taking his plavix approximately 3 days ago by the direction of his can operator, Dr. Guo (Formerly [facility], [facility]) Admit for chest pain observation. Cardiology has been consulted. EKG shows ST elevation in lead III, RBBB, T wave inversion in septal/anterior leads Troponin < 0.012, continue to trend SL Nitro for chest pain Plan for echocardiogram and stress test (2) Hypertension Qualifiers: Hypertension type: essential hypertension Qualified Code(s): I10 - Essential (primary) hypertension Is this a current diagnosis for this admission?: Yes Plan: Patient has a PMH HTN. Will restart home anti-hypertensives - amlodipine (3) CKD (chronic kidney disease) Qualifiers: Chronic kidney disease stage: stage 3 (moderate) Qualified Code(s): N18.3 - Chronic kidney disease, stage 3 (moderate) Is this a current diagnosis for this admission?: Yes Plan: Patient endorses a history of CKD stage III. Avoid nephrotoxic agents. Creatinine upon admission is 1.87 - Time Critical Time spent with patient: 15-24 minutes Medications reviewed and adjusted accordingly: Yes Anticipated discharge: Home Within: within 48 hours - Inpatient Certification Based on my medical assessment, after consideration of the patient's comorbidities, presenting symptoms, or acuity I expect that the services needed warrant INPATIENT care.: Yes I certify that my determination is in accordance with my understanding of Medicare's requirements for reasonable and necessary INPATIENT services [42 CFR 412.3e].: Yes Medical Necessity: Risk of Complication if Not Cared For in Hospital - Plan Summary Plan Summary: Plan to discharge home
[2018-01-01 03:40] LABS: HEMATOCRIT 39.1 % (37.9-51.0); HEMOGLOBIN 13.5 g/dL (13.5-17.0); MEAN CORPUSCULAR HEMOGLOBIN 31.6 pg (27.0-33.4); MEAN CORPUSCULAR HGB CONC 34.6 g/dL (32.0-36.0); MEAN CORPUSCULAR VOLUME 91 fl (80-97); PLATELET COUNT 172 10^3/uL (150-450); RED BLOOD COUNT 4.28 10^6/uL (4.35-5.55); RED CELL DISTRIBUTION WIDTH 13.8 % (11.5-14.0); WHITE BLOOD COUNT 7.1 10^3/uL (4.0-10.5)
[2018-01-01 03:56] LABS: ANION GAP 9 (5-19); BLOOD UREA NITROGEN 24 mg/dL (7-20); CALCIUM 9.4 mg/dL (8.4-10.2); CARBON DIOXIDE 24 mmol/L (22-30); CHLORIDE 109 mmol/L (98-107); CHOLESTEROL 153.18 mg/dL (0-200); GLUCOSE 103 mg/dL (75-110); PHOSPHORUS 3.5 mg/dL (2.5-4.5); POTASSIUM 4.7 mmol/L (3.6-5.0); SODIUM 141.9 mmol/L (137-145); TRIGLYCERIDES 146 mg/dL (<150)
[2018-01-01 04:07] LABS: DIRECT LDL 97 mg/dL (<100)
[2018-01-01] MEDS ORDERED: FEBUXOSTAT 40 MG TABLET PO SCH (10:00)
[2018-01-01] MEDS ORDERED: CLOPIDOGREL BISULFATE 75 MG TABLET PO SCH (10:00)
[2018-01-01] MEDS ORDERED: AMLODIPINE BESYLATE 10 MG TABLET PO SCH (10:00)
[2018-01-01] MEDS: ASPIRIN 81 MG TABLET, ENT COATED PO SCH (10:02)
--- NOTE | 2018-01-01 12:18 | DRAGON STRESS TEST REPORT ---
INTRAVENOUS LEXISCAN CARDIOLITE STRESS TEST USING SINGLE PHOTON EMMISION COMPUTERIZED TOMOGRAPHIC. DATE OF PROCEDURE: January 01, 2018, INDICATION : Chest pain CARDIAC RISK FACTORS: Hypertension, dyslipidemia, chronic kidney disease, borderline diabetes. RESTING EKG: Sinus rhythm with right bundle branch block pattern STRESS EKG: No significant changes noted with LexiScan bolus REASON FOR TERMINATION: Protocol. PROCEDURE REPORT: Baseline heart rate 55 beats per minute with blood pressure of 144/66. Patient had no significant complaints. Heart rate at 2 minutes post bolus 82 with a blood pressure of 154/59. 3 minutes post bolus heart rate 62 with blood pressure of 145/61. No significant EKG changes were noted. Patient had no significant complaints during the procedure or postprocedure. Patient injected with Aminophyllin 75 mg at 3 minutes or later after Lexiscan bolus. CONCLUSIONS: Normal EKG and hemodynamic response to IV LexiScan. NUCLEAR DATA: At rest the patient was given 11.44 millicuries of technetium 99 sestamibi injected intravenously. As per protocol rest gated SPECT images were obtained. On day of stress test, the patient was given intravenous LexiScan at a dose of 0.4 mg in 5 mL intravenously, followed by flush with normal saline. Subsequently the stress dose of 33.9 millicuries of technetium 99 sestamibi was injected intravenously. As per protocol stress gated images were obtained. NUCLEAR INTERPRETATION: Both raw and processed data were used for interpretation. Visual, qualitative, computer-generated quantitative data was used. There was good myocardial uptake of technetium compound. Motion artifact and soft tissue attenuations were noted. Increased visceral uptake was noted. No definitive areas of transient perfusion defect noted, except for borderline/mild decreased uptake in the distal inferolateral wall of the left ventricle, SDS score of 1, no corresponding wall motion abnormalities noted on gated imaging therefore unlikely to be significant. However clinical correlation is requested. No definitive areas of fixed perfusion defect or scars noted. EKG gated imaging showed LV EF at 57 %, rest and stress gated EF similar visually. T. I D. ratio was 1.03. Lung heart ratio noted to be within normal limits 0.47. No significant extracardiac and abnormal radiotracer activities were noted. RV free wall uptake was noted to be WNL. Lung heart ratio is at the upper limit of normal is therefore patient may have some parenchymal lung disease, which may need to be evaluated further. IMPRESSION: Also refer to comments under nuclear interpretation. Also test results needs to be interpreted in the context of pretest probability. 1. No definitive areas of transient perfusion defect noted. Please refer to details in nuclear interpretation 2. There is no definitive scintigraphic evidence of myocardial infarction/scar. 3. EKG gated imaging shows left ventricular ejection fraction of approx. 57 %. 4. Lung heart ratio noted to be at the upper limit of normal. May consider further evaluation for any underlying lung disease. 5. Clinical correlation requested as occasionally single vessel disease or balanced ischemia could be missed. In approximately 10% of the cases Lexiscan may not cause adequate vasodilatory stress. RECOMMENDATIONS: Aggressive risk factor modification and medical management. Further evaluation may be needed if continued symptoms or other high risk indicators are noted on clinical evaluation. Close cardiology follow-up is also recommended. Clinical correlation with echocardiogram derived ejection fraction. Inability to exercise by itself can lead to increased cardiovascular event risks. Consider cardiology consultation and or follow-up if clinically indicated. I am available for cardiology evaluation and consultation if requested by the stacker straightener, unless patient already has a tape recording machine operator. COOPER
[2018-01-01 16:03] VITALS: BP 132/68
[2018-01-01] MEDS ORDERED: REGADENOSON INJ 0.4 MG/5 ML DISP.SYRIN IV ONE (16:18)
[2018-01-01] MEDS ORDERED: AMINOPHYLLINE INJ/PF 250 MG/10 ML SDV IV ONE (16:18)
--- NOTE | 2018-01-01 16:43 | PDOC DISCHARGE SUMMARY ---
General - Admit/Disc Date/PCP Admission Date/Primary Care Provider: 12/31/17 08:36 LUKE DICKSON MD Discharge Date: 01/01/18 - Discharge Diagnosis (1) Chest pain Is this a current diagnosis for this admission?: Yes (2) CKD (chronic kidney disease) Is this a current diagnosis for this admission?: Yes (3) Hypertension Is this a current diagnosis for this admission?: Yes - Additional Information Resuscitation Status: Full Code Discharge Diet: Regular, Cardiac Discharge Activity: Activity As Tolerated, Balance Activity w/Rest Prescriptions: Aspirin [Ecotrin 81 mg EC Tablet] 81 mg PO DAILY #90 tabec Atorvastatin Calcium [Lipitor 10 mg Tablet] 10 mg PO QHS #30 tablet Clopidogrel Bisulfate [Plavix 75 mg Tablet] 75 mg PO DAILY #21 tablet Home Medications: Amlodipine Besylate [Norvasc 10 mg Tablet] 10 mg PO DAILY 12/31/17 Cyanocobalamin (Vitamin B-12) [Vitamin B-12 100 mcg Tablet] 100 mcg PO DAILY 10/08 Febuxostat [Uloric 40 mg Tablet] 40 mg PO DAILY 12/31/17 Aspirin [Ecotrin 81 mg EC Tablet] 81 mg PO DAILY #90 tabec 01/01/18 Atorvastatin Calcium [Lipitor 10 mg Tablet] 10 mg PO QHS #30 tablet 01/01/18 Clopidogrel Bisulfate [Plavix 75 mg Tablet] 75 mg PO DAILY #21 tablet 01/01/18 History of Present Illness History of Present Illness: Per H&P by Safia Brown [facility]: DERRELL BATRES is a 77 year old male who presented to the emergency department for chest pain. He states that he woke up at 0300 with sharp L sided chest pain radiating to his shoulder. He took 1 " pain pill" and 150 mg Plavix to alleviate the pain, but it offered no relief. The pain lasted approximately 3 hours when the patient drove himself to the ED. His EKG shows T wave inversion in the septal/anterior leads, RBBB, and ST elevation in lead III. The patient was given 150mg Plavix (total dose 300 mg Plavix) and 75mg fentanyl IV, and his chest pain resolved. CXR benign. Troponin < 0.012. Cardiology has been consulted. Given the patient's concerning symptoms , his significant PMH, and abnormal EKG, he is being admitted for chest pain observation. PMH includes HTN, CKD, angina, carotid stenosis (L carotid 40% stenosed), R carotid endarterectomy PMD - Dr. Luke Dickson Paediatric Physiotherapist - Dr. Guo ([facility]) Renal - Dr. Kaufman ([place]) Hospital Course Hospital Course: The patient was admitted under observational status on 12/31/17 for acute chest pain. Evaluation in the emergency department revealed an EKG with a right bundle branch block and inverted T waves with slight ST segment elevation in lead III but not in any consecutive leads. A CTA of the chest and abdomen was obtained to rule out dissection giving the patient's severity of pain. Fortunately, CTA of the chest and abdomen did not reveal evidence of an aortic dissection or aneurysm. Incidentally, nonspecific haziness was noted to the central mesenteric area and pancreatitis cannot be ruled out. Lipase was found to be 234. Cardiology was consulted. Serial troponins remained negative. The following morning the patient underwent a nuclear stress test with a normal EKG and hemodynamic response to IV Lexiscan. Echocardiogram was obtained. At time of dictation, the final report is not yet available. I did speak with the cooking chef, Dr. Powell, who stated that no concerning findings were evident on preliminary review. At this time, Dr. Powell approves the patient being discharged with outpatient follow-up at his established cooking chef. The patient is provided the option of staying until final results are available; he elects to be discharged at this time. At time of discharge, the patient is in stable condition, has been pain-free for greater than 24 hours. He is provided prescriptions for Aspirin, Atorvastatin, and Plavix. He is advised to follow up with his primary care provider within 1-2 weeks and with his primary cooking chef as scheduled on 01/17. Physical Exam Vital Signs: Temp Pulse Resp BP Pulse Ox 97.4 F 67 18 132/68 H 100 01/01/18 16:00 01/01/18 16:00 01/01/18 16:00 01/01/18 16:00 01/01/18 16:00 Intake & Output 12/31/17 01/01/18 01/02/18 06:59 06:59 06:59 Intake Total 250 Balance 250 Weight 73.1 kg General appearance: PRESENT: no acute distress, well-developed, well-nourished Head exam: PRESENT: atraumatic, normocephalic Eye exam: PRESENT: conjunctiva pink, EOMI, PERRLA. ABSENT: scleral icterus Ear exam: PRESENT: normal external ear exam Mouth exam: PRESENT: moist, tongue midline Neck exam: ABSENT: carotid bruit, JVD, lymphadenopathy, thyromegaly Respiratory exam: PRESENT: clear to auscultation magdalena, symmetrical, unlabored. ABSENT: rales, rhonchi, wheezes Cardiovascular exam: PRESENT: RRR, +S1, +S2. ABSENT: diastolic murmur, rubs, systolic murmur Pulses: PRESENT: normal dorsalis pedis pul Vascular exam: PRESENT: normal capillary refill GI/Abdominal exam: PRESENT: normal bowel sounds, soft. ABSENT: distended, guarding, mass, organolmegaly, rebound, tenderness Rectal exam: PRESENT: deferred Extremities exam: PRESENT: full ROM. ABSENT: calf tenderness, clubbing, pedal edema Neurological exam: PRESENT: alert, awake, oriented to person, oriented to place , oriented to time, oriented to situation, CN II-XII grossly intact. ABSENT: motor sensory deficit Psychiatric exam: PRESENT: appropriate affect, normal mood. ABSENT: homicidal ideation, suicidal ideation Skin exam: PRESENT: dry, intact, warm. ABSENT: cyanosis, rash Results Laboratory Results: 01/01/18 03:15 01/01/18 03:15 01/01/18 01/01/18 03:15 03:15 WBC 7.1 RBC 4.28 L Hgb 13.5 Hct 39.1 MCV 91 MCH 31.6 MCHC 34.6 RDW 13.8 Plt Count 172 Sodium 141.9 Potassium 4.7 Chloride 109 H Carbon Dioxide 24 Anion Gap 9 BUN 24 H Creatinine 1.87 H Est GFR ( Amer) 43 L Est GFR (Non-Af Amer) 35 L Glucose 103 Calcium 9.4 Phosphorus 3.5 Triglycerides 146 Cholesterol 153.18 LDL Cholesterol Direct 97 VLDL Cholesterol 29.0 HDL Cholesterol 34 L 12/31/17 12/31/17 01/01/18 14:49 21:05 03:15 Troponin I < 0.012 < 0.012 < 0.012 Impressions: Chest X-Ray 12/31/17 04:58 IMPRESSION: 1. No acute pneumonic process identified. Abdomen/Pelvis CTA 12/31/17 05:01 IMPRESSION: 1. No evidence of aortic dissection or aneurysm. 2. Mild haziness of the mesentery. This is a nonspecific finding that could be seen with pancreatitis or nonspecific enteritis. Correlation with serum lipase recommended. Follow-up CT of the abdomen in 6 months recommended to document stability or resolution. 3. Enlarged prostate. 4. Diverticulosis without evidence of diverticulitis. This exam was performed according to our departmental dose-optimization program, which includes automated exposure control, adjustment of the mA and/or kV according to patient size and/or use of iterative reconstruction technique. Chest/Abdomen CTA 12/31/17 05:01 IMPRESSION: 1. No evidence of aortic dissection or aneurysm. 2. Mild haziness of the mesentery. This is a nonspecific finding that could be seen with pancreatitis or nonspecific enteritis. Correlation with serum lipase recommended. Follow-up CT of the abdomen in 6 months recommended to document stability or resolution. 3. Enlarged prostate. 4. Diverticulosis without evidence of diverticulitis. This exam was performed according to our departmental dose-optimization program, which includes automated exposure control, adjustment of the mA and/or kV according to patient size and/or use of iterative reconstruction technique. Qualifiers - * PATEINT BEING DISCHARGED WITH ANY OF THE FOLLOWING DIAGNOSIS?: No
--- NOTE | 2018-01-01 18:22 | XCELERA REPORT ---
[address] [address] Transthoracic Echocardiogram Report Name: DERRELL BATRES Age: 77 yrs Gender: Male : 1940 Patient Status: Inpatient Patient Location: [address] [place] [address] Study Date: 01/01/2018 12:50 PM Height: 68 in Weight: 162 lb BSA: 1.9 m2 Procedure: A complete two-dimensional transthoracic echocardiogram was performed (2D, M-mode, spectral and color flow Doppler). The study was technically difficult with many images being suboptimal in quality. Reason For Study: CP Ordering Physician: ELIAZAR LOWRY Performed By: Tania Ulrich Interpretation Summary The left ventricular ejection fraction is within normal limits. Consider additional methods to assess LVEF such as MUGA scan, CTA heart, cardiac MRI, MERA, etc. if clinically indicated. There is borderline concentric left ventricular hypertrophy. The left ventricle is grossly normal size. Doppler measurements suggest pseudonormalized left ventricular relaxation, which is associated with grade II/IV or mild to moderate diastolic dysfunction Regional wall motion abnormalities cannot be excluded due to limited visualization. The right ventricle is mildly dilated. There is normal right ventricular wall thickness. The right atrium is mildly dilated. The left atrium is mildly dilated. There is a trace amount of mitral regurgitation There is no mitral valve stenosis. There is no aortic valve stenosis No aortic regurgitation is present. There is a trace or physiologic amount of tricuspid regurgitation Tricuspid regurgitation jet envelope not well defined to measure RV systolic pressure accurately. The aortic root is not well visualized but is probably normal size. The inferior vena cava appeared normal and decreased > 50% with respiration (RAP 5-10 mmHg) There is no pericardial effusion. MMode/2D Measurements & Calculations RVDd: 3.6 cm LVIDd: 5.1 cm FS: 39.7 % Ao root diam: 3.2 cm IVSd: 0.81 cm LVIDs: 3.1 cm EDV(Teich): 126.0 ml LVPWd: 0.83 cmESV(Teich): 37.8 ml Ao root area: 7.9 cm2 EF(Teich): 70.0 % LVOT diam: 1.9 cm LVOT area: 2.9 cm2 Doppler Measurements & Calculations MV E max sanjuana: MV dec slope: Ao V2 max: LV V1 max P.2 cm/sec 622.7 cm/sec2 164.1 cm/sec 6.5 mmHg MV A max sanjuana: MV dec time: Ao max PG: LV V1 max: 98.8 cm/sec 0.19 sec 10.8 mmHg 127.8 cm/sec MV E/A: 1.2 AMANDEEP(V,D): 2.3 cm2 PA V2 max: TR max sanjuana: 88.8 cm/sec 255.6 cm/sec PA max P.2 mmHgTR max P.1 mmHg Left Ventricle The left ventricle is grossly normal size. There is borderline concentric left ventricular hypertrophy. The left ventricular ejection fraction is within normal limits. Consider additional methods to assess LVEF such as MUGA scan, CTA heart, cardiac MRI, MERA, etc. if clinically indicated. Doppler measurements suggest pseudonormalized left ventricular relaxation, which is associated with grade II/IV or mild to moderate diastolic dysfunction. Regional wall motion abnormalities cannot be excluded due to limited visualization. Right Ventricle The right ventricle is mildly dilated. There is normal right ventricular wall thickness. The right ventricular systolic function is normal. Atria The right atrium is mildly dilated. The left atrium is mildly dilated. Interarterial septum not well visualized and not well dopplered. Cannot comment on ASD/PFO presence. Mitral Valve There is mild mitral leaflet calcification. There is no mitral valve stenosis. There is a trace amount of mitral regurgitation. Aortic Valve The aortic valve is grossly normal. There is no aortic valve stenosis. No aortic regurgitation is present. Tricuspid Valve The tricuspid valve is not well visualized, but is grossly normal. There is no tricuspid stenosis. There is a trace or physiologic amount of tricuspid regurgitation. Tricuspid regurgitation jet envelope not well defined to measure RV systolic pressure accurately. Pulmonic Valve The pulmonic valve is not well visualized. Great Vessels The aortic root is not well visualized but is probably normal size. The inferior vena cava appeared normal and decreased > 50% with respiration (RAP 5-10 mmHg). Effusions There is no pericardial effusion. : ELIAZAR LOWRY > Angela Powell
--- NOTE | 2018-01-02 10:01 | PDOC PROGRESS REPORT ---
Subjective Progress Note for:: 01/01/18 Subjective:: Patient seems to be doing better with gradual improvement. Pt is denying any chest arm or neck discomfort. Patient denying any PND, orthopnea. Patient denied any sustained palpitations, dizziness, syncope, near syncope. Patient denying any fever chills. Patient denying any other significant discomfort. Patient is maintaining sinus rhythm. Review of systems: Rest review of systems negative. Medications: Medications have been reviewed. Reason For Visit: CHEST PAIN Physical Exam Vital Signs: Temp Pulse Resp BP Pulse Ox 97.7 F 61 18 141/59 H 98 01/01/18 11:01 01/01/18 11:01 01/01/18 11:01 01/01/18 11:01 01/01/18 11:01 Intake & Output 12/31/17 01/01/18 01/02/18 06:59 06:59 06:59 Intake Total 250 Balance 250 Weight 73.1 kg Exam: GENERAL: well-nourished and in no acute distress. Alert and oriented x3 HEAD: Atraumatic, normocephalic. EYES: Pupils equal round and reactive to light, extraocular movements intact, sclera anicteric, conjunctiva are normal. ENT: TMs normal, nares patent, oropharynx clear without exudates. Moist mucous membranes. No oral ulcerations or bleeding gums noted NECK: supple without lymphadenopathy. Trachea is central. No cervical or axillary lymphadenopathy noted. Carotids are 2+, JVD WNL LUNGS: Respiration seems nonlabored, no significant accessory muscle action noted. Breath sounds clear to auscultation bilaterally and equal noted. No wheezes rales or rhonchi noted. No significant dullness noted on percussion. CHEST: Palpation of the chest wall shows no significant chest wall tenderness. No other significant abnormalities noted. HEART: [place] [facility], No PSH, 1/6 ANNE MARIE aortic area, 1/6 mike systolic murmur mitral area, no rubs, no gallops. ABDOMEN: Soft, no significant tenderness appreciated, normoactive bowel sounds. No guarding, no rebound. No rigidity noted . No masses appreciated. EXTREMITIES: Pedal pulses are 1-2+, no calf tenderness noted. No clubbing or cyanosis. Negative pedal edema noted NEUROLOGICAL: Focused neurological exam showed no significant neurologic deficit. Normal speech, no focal weakness appreciated. PSYCH: Normal mood, normal affect. Judgment and insight within normal limits. SKIN: No significant ecchymosis, skin is noted to be warm. MUSCULOSKELETAL EXAM: No significant acute joint swelling noted. Results Laboratory Results: 01/01/18 03:15 01/01/18 03:15 01/01/18 01/01/18 03:15 03:15 WBC 7.1 RBC 4.28 L Hgb 13.5 Hct 39.1 MCV 91 MCH 31.6 MCHC 34.6 RDW 13.8 Plt Count 172 Sodium 141.9 Potassium 4.7 Chloride 109 H Carbon Dioxide 24 Anion Gap 9 BUN 24 H Creatinine 1.87 H Est GFR ( Amer) 43 L Est GFR (Non-Af Amer) 35 L Glucose 103 Calcium 9.4 Phosphorus 3.5 Triglycerides 146 Cholesterol 153.18 LDL Cholesterol Direct 97 VLDL Cholesterol 29.0 HDL Cholesterol 34 L 12/31/17 12/31/17 01/01/18 14:49 21:05 03:15 Troponin I < 0.012 < 0.012 < 0.012 EKG Comments: Sinus rhythm without any sustained tachycardia or bradycardia. Impressions: Chest X-Ray 12/31/17 04:58 IMPRESSION: 1. No acute pneumonic process identified. Abdomen/Pelvis CTA 12/31/17 05:01 IMPRESSION: 1. No evidence of aortic dissection or aneurysm. 2. Mild haziness of the mesentery. This is a nonspecific finding that could be seen with pancreatitis or nonspecific enteritis. Correlation with serum lipase recommended. Follow-up CT of the abdomen in 6 months recommended to document stability or resolution. 3. Enlarged prostate. 4. Diverticulosis without evidence of diverticulitis. This exam was performed according to our departmental dose-optimization program, which includes automated exposure control, adjustment of the mA and/or kV according to patient size and/or use of iterative reconstruction technique. Chest/Abdomen CTA 12/31/17 05:01 IMPRESSION: 1. No evidence of aortic dissection or aneurysm. 2. Mild haziness of the mesentery. This is a nonspecific finding that could be seen with pancreatitis or nonspecific enteritis. Correlation with serum lipase recommended. Follow-up CT of the abdomen in 6 months recommended to document stability or resolution. 3. Enlarged prostate. 4. Diverticulosis without evidence of diverticulitis. This exam was performed according to our departmental dose-optimization program, which includes automated exposure control, adjustment of the mA and/or kV according to patient size and/or use of iterative reconstruction technique. Assessment & Plan - Diagnosis (1) Chest pain Qualifiers: Chest pain type: unspecified Qualified Code(s): R07.9 - Chest pain, unspecified Is this a current diagnosis for this admission?: Yes (2) Dyslipidemia Is this a current diagnosis for this admission?: Yes (3) CKD (chronic kidney disease) Qualifiers: Chronic kidney disease stage: stage 3 (moderate) Qualified Code(s): N18.3 - Chronic kidney disease, stage 3 (moderate) Is this a current diagnosis for this admission?: Yes (4) Hypertension Qualifiers: Hypertension type: essential hypertension Qualified Code(s): I10 - Essential (primary) hypertension Is this a current diagnosis for this admission?: Yes - Notes Notes: Chest pain: Patient claims chest pain is resolved. This was evaluated with a nuclear stress test. Nuclear stress test was negative for any significant areas of ischemia or any significant areas of scar. The nuclear stress test is felt to be relatively low risk. Patient informed that occasionally single- vessel disease and balanced ischemia could be missed. Patient advised aggressive risk factor modification and medical therapy. Patient informed that further evaluation may become necessary if symptoms worsens or there is a development of new symptoms indicative of angina or angina equivalent symptom. Hyperlipidemia: LDL goal is less than 70. Recommend statin therapy at least intermediate or high dose, of high potency status. Periodic lipid panel and liver panel is indicated. Patient to report any significant muscle discomfort or other side effects. Hypertension: Reasonably well controlled. Blood pressure goal in this patient is 135/85 or less. This was discussed with the patient. Currently blood pressure under reasonable control. Better medication for this patient are TORSTEN inhibitor/ARB/beta madhu etc. discussed side effects of uncontrolled hypertension and also severe hypotension. Chronic kidney disease currently stable. Methods to reduce progression of chronic kidney disease discussed. This would include good control of blood pressure, diabetes, treatment of sleep apnea if present, weight loss etc. Also discussed avoiding nephrotoxic drugs and medication, IVP dye etc. certain blood pressure medications such as TORSTEN inhibitor, ARB can also reduce progression of chronic kidney disease - Time Time with patient: Greater than 35 minutes - Patient was seen multiple times. Total time exceeds 40 minutes. In the morning nuclear stress test procedure, risks benefits, alternatives were discussed. Patient seen during the stress test. Patient also seen after stress test when results were discussed with the patient in detail. Patient's questions were answered. Nuclear stress test results were discussed with the patient. Patient was informed that no definitive evidence of pharmacologic stress-induced ischemia noted. No definite fixed defects were noted. Patient informed that occasionally significant single vessel disease or balanced ischemia could be missed. However based on the current study results, would recommend aggressive risk factor modification and medical therapy. It may also be worthwhile to consider evaluation or empiric management of other causes of chest pain. Should no other cause be found and if persistent in having chest pain, then cardiac catheterization should be considered. Right now, recommendations are for aggressive risk factor modification and medical management. CODE STATUS was discussed, patient remains full code. Surrogate decision-maker unchanged. Multiple medical problems were addressed. More than 50% of the time spent coordinating care, discussing management plans with involved caregivers. Management plans discussed with involved personnels. Medical decision making was of moderate to high complexity, patient's has multiple comorbidities. Medications reviewed and adjusted accordingly: Yes
== END 2018-01-01 16:40 | disposition home or self-care (01) ==
LOC: ER 04:34 → EH 08:36 → 4S 11:56
PROVIDERS: ADMIT Emergency Medicine; ATTEND Emergency Medicine
DX: R07.9 Chest pain, unspecified (principal); I12.9 Hypertensive chronic kidney disease with stage 1 through stage 4 chronic kidney disease, or unspecified chronic kidney disease; N18.3 Chronic kidney disease, stage 3 (moderate); R94.31 Abnormal electrocardiogram [ECG] [EKG]; I65.22 Occlusion and stenosis of left carotid artery; E78.5 Hyperlipidemia, unspecified; I45.10 Unspecified right bundle-branch block; Z79.899 Other long term (current) drug therapy; Z98.890 Other specified postprocedural states; Z79.02 Long term (current) use of antithrombotics/antiplatelets; Z87.891 Personal history of nicotine dependence; Z82.49 Family history of ischemic heart disease and other diseases of the circulatory system; Z79.82 Long term (current) use of aspirin
CPT/HCPCS: 93005; 99285; 96374; 96375; 36415 ×2; 82553; 82550; 83690; 84100; 85025; 85027; 80048; 80053; 84484 ×2; 80061; 93306; 93017; 71045; 78452; 71275; 74174; 93010; G0378 ×2; A9500; J2785; J3010; J3490 ×2; J2405; J0280; Q9969

== ENCOUNTER 2020-01-14 19:34 | Emergency (ER) | payer OTHER, MEDICARE ==
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
[2020-01-14] MEDS ORDERED: BUTALB/ACETAMINOPHEN/CAFFEINE 1 TAB EACH PO ONE (20:44)
[2020-01-14 21:27] VITALS: BP 165/58
== END 2020-01-14 21:30 | disposition home or self-care (01) ==
LOC: ER 19:34
DX: R51 Headache (principal); M54.2 Cervicalgia; M43.6 Torticollis; V43.52XA Car driver injured in collision with other type car in traffic accident, initial encounter; I12.0 Hypertensive chronic kidney disease with stage 5 chronic kidney disease or end stage renal disease; N18.6 End stage renal disease; Z99.2 Dependence on renal dialysis; Z96.653 Presence of artificial knee joint, bilateral
CPT/HCPCS: 99283; J3490